=== PATIENT | male | born 1965 | race Two or more races ===

== ENCOUNTER 2016-03-22 13:50 | Emergency (ER) | payer BC ==
[~2016-03-22] VITALS: Ht 165.1 cm; Wt 80.7 kg
--- NOTE | 2016-03-22 14:46 | RAD ---
EXAM: Chest, 2 views. HISTORY: Cough. COMPARISON: None. FINDINGS: Frontal and lateral views of the chest are obtained. There is no infiltrate, effusion or pneumothorax. The heart is normal in size. IMPRESSION: No acute pulmonary finding.
--- NOTE | 2016-03-22 14:53 | PHYS DOC ---
Past Medical History Past Medical History: No Pertinent History Past Surgical History: Appendectomy Additional Information: nonsmoker Alcohol Use: Occasionally Drug Use: None Adult General Chief Complaint Chief Complaint: Congestion HPI HPI Patient is a 50 year old male who presents with productive cough and subjective fever for one week. He reports sore throat, right ear pain, and myalgias as well. He denies shortness of breath or nasal congestion. His multiple coworkers with similar symptoms. His PCP is Dr. Burr. Review of Systems Review of Systems Constitutional: Reports subjective fever. Eyes: Denies change in visual acuity, redness, or eye pain. [] HENT: Denies nasal congestion. Reports right ear pain and sore throat. Respiratory: Denies shortness of breath. Reports subjective cough. Musculoskeletal: Denies back pain or joint pain. Reports myalgias. Integument: Denies rash or skin lesions. [] Neurologic: Denies headache, focal weakness or sensory changes. [] All systems reviewed and negative unless otherwise stated in the HPI. Physical Exam Physical Exam Constitutional: Well developed, well nourished, no acute distress, non-toxic appearance. [] HENT: Normocephalic, atraumatic, bilateral external ears normal, oropharynx moist, no oral exudates, nose normal. Bilateral TMs without erythema or bulging. There is no posterior pharyngeal erythema or tonsillar edema. Bilateral nasal turbinates are swollen and erythematous with purulent drainage. Eyes: PERRLA, EOMI, conjunctiva normal, no discharge. [] Neck: Normal range of motion, no tenderness, supple, no stridor. [] Cardiovascular: Heart rate regular rhythm, no murmur [] Lungs & Thorax: There is mild wheezing in the left upper lobe without rales or rhonchi. No respiratory distress. Skin: Warm, dry, no erythema, no rash. [] Neurologic: Alert and oriented X 3, normal motor function, normal sensory function, no focal deficits noted. [] Psychologic: Affect normal, judgement normal, mood normal. [] Current Patient Data Vital Signs Vital Signs Date Time Temp Pulse Resp B/P Pulse Ox O2 Delivery O2 Flow Rate FiO2 03/22/16 15:54 100 16 125/76 99 Room Air 03/22/16 13:59 99.7 99.7 Lab Values Laboratory Tests Test 03/22/16 14:43 Influenza Type A Antigen Negative (NEGATIVE) Influenza Type B Antigen Negative (NEGATIVE) EKG EKG [] Radiology/Procedures Radiology/Procedures REASON: cough, fever PROCEDURE: CHEST PA & LATERAL EXAM: Chest, 2 views. HISTORY: Cough. COMPARISON: None. FINDINGS: Frontal and lateral views of the chest are obtained. There is no infiltrate, effusion or pneumothorax. The heart is normal in size. IMPRESSION: No acute pulmonary finding. Course & Med Decision Making Course & Med Decision Making Pertinent Labs and Imaging studies reviewed. (See chart for details) [] Dragon Disclaimer Dragon Disclaimer This electronic medical record was generated, in whole or in part, using a voice recognition dictation system. Departure Departure Impression: Primary Impression: URI (upper respiratory infection) Disposition: HOME, SELF-CARE Condition: STABLE Referrals: PRACHI BURR MD (PCP) Patient Instructions: Upper Respiratory Infection, Adult, [id number] Additional Instructions: Your flu test was negative today. Your chest x-ray does not show pneumonia. Please complete all the prescribed steroids, even if you are feeling better. Please use the prescribed inhaler as needed for cough or shortness of breath. Do not use more often than directed. Please follow-up with your primary care provider if your symptoms continue. Return to emergency department if you have high fever, shortness of breath, chest pain, or other new or concerning symptoms. Scripts Prednisone 20 Mg [id number] Mg PO DAILY 5 Days Prov:CHARITO DENG 03/22/16 Albuterol Sulfate (Proair Hfa Inhaler)8.5 Gm [id number] Puff INH Q4HRS PRN SHORTNESS OF BREATH #1 INHALER Prov:CHARITO DENG 03/22/16 Problem Qualifiers Primary Impression: URI (upper respiratory infection) URI type: unspecified viral URI Qualified Code: J06.9 - Acute upper respiratory infection, unspecified CHARITO DENG Mar 22, 2016 14:53
[2016-03-22 15:20] LABS: OBC FLU VALID
[2016-03-22] MEDS ORDERED: PROAIR HFA8.5 GM INH (15:41)
[2016-03-22] MEDS ORDERED: PRED20TA PO (15:41)
[2016-03-22 15:54] VITALS: BP 125/76
== END 2016-03-22 15:55 | disposition home or self-care (01) ==
LOC: ER 13:50
DX: J06.9 Acute upper respiratory infection, unspecified (principal); H92.01 Otalgia, right ear
CPT/HCPCS: 71020; 87804; 99285-25